=== PATIENT | female | born 1950 | race Caucasian/White ===

== ENCOUNTER 2018-06-19 09:32 | Outpatient (CLI) | payer MEDICARE, MEDICAID | END 2018-06-19 09:33 | disposition home or self-care (01) | LOC: DTY/OP 09:32 | PROVIDERS: ATTEND Obstetrics & Gynecology | DX: E11.9 Type 2 diabetes mellitus without complications (principal) | CPT/HCPCS: 97802 ==

== ENCOUNTER 2019-01-21 10:21 | Outpatient (CLI) | payer MEDICARE, MEDICAID ==
--- NOTE | 2019-02-17 13:19 | MMO ---
Bilateral MAMMO Bilat Screen [facility]. CLINICAL HISTORY: Patient is 68 years old and is seen for screening. VIEWS: The views performed were: . FILMS COMPARED: The present examination has been compared to prior imaging studies performed at [facility] on 04/15/2007 and 04/15/2008, at [facility] on 04/14/2006, and at [facility] on 01/01/2018. MAMMOGRAM FINDINGS: There are scattered fibroglandular densities. Benign calcifications are noted bilaterally. There are no suspicious masses, calcifications or areas of architectural distortion. IMPRESSION: FINDINGS IN BOTH BREASTS ARE BENIGN. A ROUTINE FOLLOW-UP MAMMOGRAM IN 1 YEAR IS RECOMMENDED. THE RESULTS OF THIS EXAM WERE SENT TO THE PATIENT. ACR BI-RADS Category 2 - Benign finding MAMMOGRAPHY NOTE: 1. A negative mammogram report should not delay a biopsy if a dominant of clinically suspicious mass is present. 2. Approximately 10% to 15% of breast cancers are not detected by mammography. 3. Adenosis and dense breasts may obscure an underlying neoplasm.
== END 2019-01-21 10:22 | disposition home or self-care (01) ==
LOC: BICMAMMO 10:21
PROVIDERS: ATTEND Obstetrics & Gynecology
DX: Z12.31 Encounter for screening mammogram for malignant neoplasm of breast (principal)
CPT/HCPCS: 77063; 77067

== ENCOUNTER 2024-05-02 20:42 | Observation (INO) | payer MEDICARE, MEDICAID ==
[2024-05-02 22:58] LABS: #Basophils 0.06 10x3/uL (0.0-0.2); %Basophils 0.8 % (0.0-1.0); %Eosinophils 6.1 % (0.0-10.0); %Lymphocytes 32.3 % (21.0-51.0); %Monocytes 9.8 % (0.0-10.0); %Neutrophils 50.9 % (42.0-75.0); Hematocrit 42.8 % (36.0-47.0); Hemoglobin 14.6 g/dL (12.0-16.0); Mean Corpuscular HGB CONC 34.1 g/dL (32.0-36.0); Mean Corpuscular Hemoglobin 30.7 pg (27.0-31.0); Mean Corpuscular Volume 90.1 fL (78.0-98.0); Mean Platelet Volume 11.4 fL (7.4-10.4); Platelet Count 184 10x3/uL (130-400); RBC Distribution Width 13.6 % (11.5-14.5); Red Blood Cell (RBC) Count 4.75 mill/uL (4.20-5.40)
[2024-05-02 23:17] LABS: Troponin I Less than 0.010 ng/mL (< 0.028)
[2024-05-02 23:18] LABS: ALT (SGPT) 9 U/L (8-55); AST (SGOT) 31 U/L (5-34); Albumin 3.9 g/dL (3.4-4.8); Alkaline Phosphatase 64 U/L (40-110); Anion Gap 15 mmol/L (10-20); BUN (Urea Nitrogen) 15 mg/dL (9.8-20.1); Bilirubin, Total 0.6 mg/dL (0.2-1.2); Calc. Creatinine Clearance 0 mL/min (70-130); Calcium 9.9 mg/dL (7.8-10.44); Carbon Dioxide 22 mmol/L (23-31); Chloride 107 mmol/L (98-107); Estimated GFR 69; Globulin 3.8 g/dL (2.4-3.5); Glucose 74 mg/dL (83-110); Magnesium 2.1 mg/dL (1.6-2.6); Potassium 4.7 mmol/L (3.5-5.1); Protein, Total 7.7 g/dL (5.8-8.1); Sodium 139 mmol/L (136-145)
[2024-05-03 02:20] LABS: Bacteria/HPF None Seen HPF (None Seen); Bilirubin Negative (Negative); Blood, Urine Negative (Negative); CAUTI Indications for Culture Alt mental st,lethar; Clarity Clear (Clear); Glucose, Urine (Dipstick) Normal (Negative); Ketone, Urine Negative (Negative); Leukocyte 75 Leu/uL (Negative); Nitrite Negative (Negative); Protein, Urine (Dipstick) Negative (Neg-Trace); RBC/HPF None Seen HPF (0-3); Specific Gravity, Urine 1.007 (1.002-1.036); Squamous Epithelial 0-3 HPF (0-3); Urobilinogen Normal mg/dL (Less than 2); WBC/HPF 0-3 HPF (0-3); pH, Urine 5.5 (5.0-9.0)
[2024-05-03 02:26] LABS: Urine Culture Reflex No No
[2024-05-03 03:11] LABS: Troponin I Less than 0.010 ng/mL (< 0.028)
[2024-05-03] MEDS ORDERED: Acetaminophen 325 MG TAB PO PRN (03:32)
[2024-05-03] MEDS ORDERED: Ondansetron PF 4 MG/2 ML Vial IVP PRN (03:32)
[2024-05-03] MEDS ORDERED: Dextrose 50% Abboject 50 ML SYRINGE SLOW IVP PRN (03:35)
[2024-05-03] MEDS ORDERED: Dextrose 5% in Water 1,000 ML IV PRN (03:35)
[2024-05-03] MEDS ORDERED: Glucagon 1 MG/ML KIT IM PRN (03:35)
[2024-05-03] MEDS ORDERED: HumaLOG 300 UNITS/3 ML VIAL SC PRN ×2 (03:35)
[2024-05-03 04:56] VITALS: BMI 27.6
[2024-05-03 06:46] LABS: Hemoglobin A1c 5.9 % (4.0-6.0)
[2024-05-03 06:50] LABS: Cardiac Risk 2.8 (Less than 4.5)
[2024-05-03 06:54] LABS: Troponin I Less than 0.010 ng/mL (< 0.028)
[2024-05-03] MEDS: Aspirin Chewable 81 MG TAB PO SCH (08:47)
[2024-05-03] MEDS: Rosuvastatin 20 MG TAB PO SCH (08:47)
[2024-05-03] MEDS: Aspirin 81 mg Enteric Coated Tablet PO SCH (08:48)
[2024-05-03] MEDS: Clopidogrel Bisulfate 75 MG TAB PO SCH (08:48)
[2024-05-03 10:12] LABS: Free T4 (Free Thyroxine) 1.27 ng/dL (0.70-1.48); Thyroid Stimulating Hormone 0.5962 uIU/mL (0.35-4.94)
[2024-05-03] MEDS: Atenolol 25 MG TAB PO SCH (15:46)
[2024-05-04 04:29] LABS: #Basophils 0.08 10x3/uL (0.0-0.2); %Basophils 1.1 % (0.0-1.0); %Eosinophils 9.6 % (0.0-10.0); %Lymphocytes 34.6 % (21.0-51.0); %Monocytes 9.4 % (0.0-10.0); %Neutrophils 45.2 % (42.0-75.0); Hematocrit 40.7 % (36.0-47.0); Hemoglobin 13.7 g/dL (12.0-16.0); Mean Corpuscular HGB CONC 33.7 g/dL (32.0-36.0); Mean Corpuscular Hemoglobin 30.4 pg (27.0-31.0); Mean Corpuscular Volume 90.2 fL (78.0-98.0); Mean Platelet Volume 11.1 fL (7.4-10.4); Platelet Count 163 10x3/uL (130-400); RBC Distribution Width 13.4 % (11.5-14.5); Red Blood Cell (RBC) Count 4.51 mill/uL (4.20-5.40)
[2024-05-04 05:16] LABS: Anion Gap 14 mmol/L (10-20); BUN (Urea Nitrogen) 14 mg/dL (9.8-20.1); Calc. Creatinine Clearance 69 mL/min (70-130); Calcium 9.3 mg/dL (7.8-10.44); Carbon Dioxide 22 mmol/L (23-31); Chloride 108 mmol/L (98-107); Estimated GFR 78; Glucose 102 mg/dL (83-110); Potassium 4.5 mmol/L (3.5-5.1); Sodium 139 mmol/L (136-145)
[2024-05-04] MEDS: Levothyroxine Sodium 112 MCG TAB PO SCH (06:20)
[2024-05-04] MEDS ORDERED: Iopamidol-370 76% 500 ML MDV (1 ML CHARGE) ONE (07:12)
[2024-05-04 12:08] VITALS: TEMP 98.4
[2024-05-04 16:41] VITALS: BP 138/67
== END 2024-05-04 17:54 | disposition home or self-care (01) ==
LOC: ERS 20:42 → 2SW 05-03 01:27
PROVIDERS: ADMIT Internal Medicine; ATTEND Family Medicine
PROC: B246ZZZ Ultrasonography of Right and Left Heart (ICD-10-PCS; principal; 2024-05-02)
DX: R29.90 Unspecified symptoms and signs involving the nervous system (principal); R55 Syncope and collapse; I25.10 Atherosclerotic heart disease of native coronary artery without angina pectoris; I10 Essential (primary) hypertension; E78.5 Hyperlipidemia, unspecified; R91.1 Solitary pulmonary nodule; E11.42 Type 2 diabetes mellitus with diabetic polyneuropathy; E03.9 Hypothyroidism, unspecified; Z95.0 Presence of cardiac pacemaker; Z90.710 Acquired absence of both cervix and uterus; Z98.890 Other specified postprocedural states; Z87.891 Personal history of nicotine dependence; Z79.890 Hormone replacement therapy; Z95.5 Presence of coronary angioplasty implant and graft; Z79.82 Long term (current) use of aspirin; Z79.85 Long-term (current) use of injectable non-insulin antidiabetic drugs; Z79.899 Other long term (current) drug therapy; Z79.02 Long term (current) use of antithrombotics/antiplatelets; Z79.4 Long term (current) use of insulin; Z79.51 Long term (current) use of inhaled steroids
CPT/HCPCS: 70450; 70496; 80048; 80053; 80061; 81001; 82962 ×2; 83036; 83735; 84439; 84443; 84481; 84484 ×3; 85025 ×2; 93005; 93306; 93880; 94760; 97116; G0378 ×3; 36415; 36416; Q9967

== ENCOUNTER 2024-08-20 07:17 | Observation (INO) | payer MEDICARE, MEDICAID ==
[2024-08-20 09:00] LABS: INR-International Normal Ratio 1.1; PTT 29.3 sec (22.9-36.1); Prothrombin Time 14.1 sec (12.0-14.7)
[2024-08-20] MEDS ORDERED: Guaifenesin DM 100-10/5 ML UDCUP PO PRN (09:13)
[2024-08-20] MEDS ORDERED: Nitroglycerin 0.4 MG TAB (25 Tab Bottle) SL PRN (09:13)
[2024-08-20] MEDS ORDERED: Acetaminophen 325 MG TAB PO PRN (09:13)
[2024-08-20] MEDS ORDERED: Senokot S 8.6-50 MG TAB PO PRN (09:13)
[2024-08-20] MEDS ORDERED: Ondansetron PF 4 MG/2 ML Vial IVP PRN (09:13)
[2024-08-20 09:16] LABS: ALT (SGPT) 11 U/L (8-55); AST (SGOT) 16 U/L (5-34); Albumin 3.5 g/dL (3.4-4.8); Alkaline Phosphatase 51 U/L (40-110); Anion Gap 9 mmol/L (10-20); BUN (Urea Nitrogen) 15 mg/dL (9.8-20.1); Bilirubin, Total 0.4 mg/dL (0.2-1.2); Calc. Creatinine Clearance 0 mL/min (70-130); Carbon Dioxide 23 mmol/L (23-31); Chloride 111 mmol/L (98-107); Estimated GFR 63; Globulin 3.2 g/dL (2.4-3.5); Glucose 92 mg/dL (83-110); Lipase 45 U/L (8-78); Potassium 3.7 mmol/L (3.5-5.1); Protein, Total 6.7 g/dL (5.8-8.1); Sodium 139 mmol/L (136-145)
[2024-08-20 09:22] LABS: Troponin I Less than 0.010 ng/mL (< 0.028)
[2024-08-20] MEDS ORDERED: Dextrose 5% in Water 1,000 ML IV PRN ×2 (09:38→09:45)
[2024-08-20] MEDS ORDERED: Insulin Lispro 100 UNIT/ML 10 ML VIAL SC PRN (09:38)
[2024-08-20 09:39] LABS: #Basophils 0.05 10x3/uL (0.0-0.2); %Basophils 0.8 % (0.0-1.0); %Eosinophils 9.6 % (0.0-10.0); %Monocytes 9.1 % (0.0-10.0); %Neutrophils 52.2 % (42.0-75.0); Hematocrit 36.4 % (36.0-47.0); Hemoglobin 12.4 g/dL (12.0-16.0); Mean Corpuscular HGB CONC 34.1 g/dL (32.0-36.0); Mean Corpuscular Hemoglobin 31.6 pg (27.0-31.0); Mean Corpuscular Volume 92.6 fL (78.0-98.0); Mean Platelet Volume 11.6 fL (7.4-10.4); Platelet Count 129 10x3/uL (130-400); RBC Distribution Width 14.2 % (11.5-14.5); Red Blood Cell (RBC) Count 3.93 mill/uL (4.20-5.40)
[2024-08-20] MEDS ORDERED: Albuterol 2.5 MG (3 mL) NEB NEB PRN (09:39)
[2024-08-20] MEDS ORDERED: Dextrose 50% Abboject 50 ML SYRINGE SLOW IVP PRN (09:45)
[2024-08-20] MEDS ORDERED: Glucagon 1 MG/ML KIT IM PRN (09:45)
[2024-08-20 10:27] LABS: Troponin I Less than 0.010 ng/mL (< 0.028)
[2024-08-20] MEDS ORDERED: Iopamidol-370 76% 500 ML MDV (1 ML CHARGE) ONE (11:26)
[2024-08-20] MEDS: Sodium Chloride 0.9% 1,000 ML IV SCH (12:35)
[2024-08-20 12:57] LABS: Troponin I Less than 0.010 ng/mL (< 0.028)
[2024-08-20 16:11] VITALS: BMI 24.8
[2024-08-20 17:10] LABS: Troponin I Less than 0.010 ng/mL (< 0.028)
[2024-08-20] MEDS: HumuLIN 70/30 100 Unit/ml 10 ml Vial SC SCH (21:02)
[2024-08-20] MEDS: Pregabalin 75 MG CAP PO SCH (21:16)
[2024-08-20] MEDS: traZODone HCl 150 MG TAB PO SCH (21:17)
[2024-08-20] MEDS: Famotidine 20 MG TAB PO SCH (21:17)
[2024-08-20] MEDS: Baclofen 10 MG TAB PO SCH (21:17)
[2024-08-20] MEDS: Atenolol 25 MG TAB PO SCH (21:17)
[2024-08-20] MEDS: rOPINIRole HCl 0.5 MG TAB PO SCH (21:17)
[2024-08-20] MEDS: Rosuvastatin 20 MG TAB PO SCH (21:18)
[2024-08-20] MEDS: traMADol HCl 50 MG TAB PO PRN (23:29)
[2024-08-21 04:26] LABS: #Basophils 0.06 10x3/uL (0.0-0.2); %Basophils 0.9 % (0.0-1.0); %Lymphocytes 28.3 % (21.0-51.0); %Monocytes 8.7 % (0.0-10.0); %Neutrophils 51.9 % (42.0-75.0); Hematocrit 35.2 % (36.0-47.0); Mean Corpuscular HGB CONC 34.1 g/dL (32.0-36.0); Mean Corpuscular Hemoglobin 31.2 pg (27.0-31.0); Mean Corpuscular Volume 91.4 fL (78.0-98.0); Mean Platelet Volume 11.8 fL (7.4-10.4); Platelet Count 131 10x3/uL (130-400); RBC Distribution Width 14.3 % (11.5-14.5); Red Blood Cell (RBC) Count 3.85 mill/uL (4.20-5.40)
[2024-08-21 04:45] LABS: Anion Gap 10 mmol/L (10-20); BUN (Urea Nitrogen) 14 mg/dL (9.8-20.1); Calc. Creatinine Clearance 57 mL/min (70-130); Carbon Dioxide 19 mmol/L (23-31); Cardiac Risk 3.1 (Less than 4.5); Chloride 113 mmol/L (98-107); Cholesterol 113 mg/dl (< 200 Desired); Estimated GFR 71; Glucose 148 mg/dL (83-110); HDL Cholesterol 37 mg/dL (>60 Neg Risk); LDL Cholesterol, Calculated 42 mg/dL; Potassium 3.8 mmol/L (3.5-5.1); Sodium 138 mmol/L (136-145); Triglycerides 171 mg/dL (Less than 150)
[2024-08-21] MEDS: Levothyroxine Sodium 112 MCG TAB PO SCH (06:23)
[2024-08-21] MEDS ORDERED: Linaclotide [Linzess] 145 MCG Capsule PO SCH (09:00)
[2024-08-21] MEDS ORDERED: Vibegron [Gemtesa] 75 MG Tablet PO SCH (09:00)
[2024-08-21] MEDS: Aspirin Chewable 81 MG TAB PO SCH (09:15)
[2024-08-21] MEDS: Clopidogrel Bisulfate 75 MG TAB PO SCH (09:16)
[2024-08-21] MEDS: Enoxaparin 40 MG (0.4 mL) SYRINGE SC SCH (09:16)
[2024-08-21] MEDS: HumuLIN 70/30 100 Unit/ml 10 ml Vial SC SCH (09:16)
[2024-08-21 10:16] VITALS: BMI 24.8
[2024-08-21] MEDS ORDERED: Regadenoson 0.4 MG/5 ML SYRINGE ONE (11:08)
[2024-08-21 15:33] VITALS: BP 112/66; TEMP 97.7
[2024-08-21] MEDS ORDERED: Rosuvastatin 20 MG TAB PO SCH (21:00)
== END 2024-08-21 19:00 | disposition home or self-care (01) ==
LOC: ERS 07:17 → ERHOLD 09:14 → 2SE 15:39
PROVIDERS: ADMIT Internal Medicine; ATTEND Family Medicine
DX: R29.90 Unspecified symptoms and signs involving the nervous system (principal); I10 Essential (primary) hypertension; G45.9 Transient cerebral ischemic attack, unspecified; J45.909 Unspecified asthma, uncomplicated; M81.8 Other osteoporosis without current pathological fracture; R07.2 Precordial pain; E11.40 Type 2 diabetes mellitus with diabetic neuropathy, unspecified; I25.10 Atherosclerotic heart disease of native coronary artery without angina pectoris; E03.9 Hypothyroidism, unspecified; E78.5 Hyperlipidemia, unspecified; J41.0 Simple chronic bronchitis; Z98.890 Other specified postprocedural states; Z90.710 Acquired absence of both cervix and uterus; Z79.4 Long term (current) use of insulin; Z79.899 Other long term (current) drug therapy; G47.00 Insomnia, unspecified; Z95.0 Presence of cardiac pacemaker; Z79.51 Long term (current) use of inhaled steroids; Z79.82 Long term (current) use of aspirin; Z79.890 Hormone replacement therapy
CPT/HCPCS: 70450; 70496; 70498; 71045; 78452; 80048; 80053; 80061; 82962 ×2; 83690; 84484 ×2; 85025 ×2; 85610; 85730; 93005; 93017; 94760; 99285; A9502; J1650; J2785 ×2; J7030; Q9967; 36415; 36416; 96372; G0378; J1815

== ENCOUNTER 2024-12-05 09:18 | Outpatient (CLI) | payer MEDICARE, MEDICAID | END 2024-12-05 09:19 | disposition home or self-care (01) | LOC: BICMAMMO 09:18 | PROVIDERS: ATTEND Family Medicine | DX: Z12.31 Encounter for screening mammogram for malignant neoplasm of breast (principal) | CPT/HCPCS: 77063; 77067 ==

== ENCOUNTER 2025-10-07 00:02 | Emergency (ER) | payer MEDICARE ==
[2025-10-08] MEDS ORDERED: Ketorolac Tromethamine 30 MG (1 mL) VIAL ONE (00:55)
[2025-10-08 00:56] LABS: ALT (SGPT) 13 U/L (Less than 34); AST (SGOT) 35 U/L (11-34); Albumin 3.8 g/dL (3.1-4.5); Alkaline Phosphatase 60 U/L (40-110); Anion Gap 16 mmol/L (10-20); BUN (Urea Nitrogen) 15 mg/dL (9.8-20.1); Bilirubin, Total 0.7 mg/dL (0.3-1.2); Calc. Creatinine Clearance 0 mL/min (70-130); Calcium 9.2 mg/dL (7.8-10.44); Carbon Dioxide 18 mmol/L (23-31); Chloride 101 mmol/L (98-107); Globulin 3.6 g/dL (2.4-3.5); Glucose 156 mg/dL (83-110); Potassium 4.9 mmol/L (3.5-5.1); Sodium 130 mmol/L (136-145)
[2025-10-08 01:25] LABS: Bacteria/HPF None Seen HPF (None Seen); CAUTI Indications for Culture < 2yrs of age; Glucose, Urine (Dipstick) Normal (Negative); Leukocyte 75 Leu/uL (Negative); Protein, Urine (Dipstick) Negative (Neg-Trace); RBC/HPF 0-3 HPF (0-3); Specific Gravity, Urine 1.008 (1.002-1.036)
[2025-10-08 01:32] LABS: #Basophils 0.05 10x3/uL (0.0-0.2); #Eosinophils 0.05 10x3/uL (0.0-0.7); #Monocytes 0.74 10x3/uL (0.11-0.59); #Neutrophils 6.94 10x3/uL (1.40-6.50); %Basophils 0.6 % (0.0-1.0); %Eosinophils 0.6 % (0.0-10.0); %Lymphocytes 13.3 % (21.0-51.0); %Monocytes 8.2 % (0.0-10.0); %Neutrophils 77.2 % (42.0-75.0); Hematocrit 42.2 % (36.0-47.0); Hemoglobin 14.3 g/dL (12.0-16.0); Mean Corpuscular Hemoglobin 30.0 pg (27.0-31.0); Mean Corpuscular Volume 88.5 fL (78.0-98.0); Platelet Count 144 10x3/uL (130-400); Red Blood Cell (RBC) Count 4.77 mill/uL (4.20-5.40); White Blood Cell (WBC) Count 8.99 10x3/uL (4.8-10.8)
[2025-10-08 01:48] LABS: Urine Culture Reflex Yes Yes
[2025-10-08 02:04] LABS: Platelet Adequacy Comment Platelets Normal; RBC Morphology Within Normal Limits
== END 2025-10-08 06:00 | disposition home or self-care (01) ==
LOC: ERS 00:02
DX: R25.2 Cramp and spasm (principal); E11.42 Type 2 diabetes mellitus with diabetic polyneuropathy; I10 Essential (primary) hypertension; I25.10 Atherosclerotic heart disease of native coronary artery without angina pectoris; I25.2 Old myocardial infarction; Z95.5 Presence of coronary angioplasty implant and graft; Z87.891 Personal history of nicotine dependence; Z95.0 Presence of cardiac pacemaker; Z79.899 Other long term (current) drug therapy; Z79.4 Long term (current) use of insulin
CPT/HCPCS: 71045; 80053; 81001; 84484; 85025; 87077; 87086; 93005; J1885; 36415; 82607; 82746; 83036; 83735; 87186; 96374